=== PATIENT | female | born 1950 | race Caucasian/White ===

== ENCOUNTER 2022-03-12 08:25 | Day surgery (SDC) | payer OTHER ==
[2022-03-11 08:51] VITALS: BMI 23.8
[~2022-03-12 08:25] MED LIST: LACTATED RINGERS 1,000 ML IV SCH
[2022-03-12 08:49] VITALS: RESP 16; TEMP 97.2
[2022-03-12] MEDS ORDERED: LIDOCAINE 2% INJ 20 MG/ML (2 ML VIAL) ONE (09:22)
[2022-03-12] MEDS ORDERED: PROPOFOL 10 MG/ML 20 ML VIAL IV ONE (09:22)
--- NOTE | 2022-03-12 09:23 | P.GSHP ---
History of Present Illness H&P Date: 03/12/22 Chief Complaint: Screening colonoscopy This a 72-year-old female who presents today for screening colonoscopy. Patient denies a significant GI complaints. Past Medical History Past Medical History: Hyperlipidemia, Hypertension History of Any Multi-Drug Resistant Organisms: None Reported Past Surgical History: Cholecystectomy Additional Past Surgical History / Comment(s): COLONOSCOPY Past Anesthesia/Blood Transfusion Reactions: No Reported Reaction Smoking Status: Never smoker - Past Family History Mother Family Medical History: Cancer Medications and Allergies Home Medications Medication Instructions Recorded Confirmed Type Losartan [Cozaar] 50 mg PO DAILY 03/11/22 03/12/22 History Simvastatin 40 mg PO DAILY 03/11/22 03/12/22 History Allergies Allergy/AdvReac Type Severity Reaction Status Date / Time Sulfa (Sulfonamide Allergy Rash/Hives Verified 03/12/22 08:49 Antibiotics) Surgical - Exam Vital Signs Temp Pulse Resp BP Pulse Ox 97.2 F L 100 16 152/77 96 03/12/22 08:41 03/12/22 08:41 03/12/22 08:41 03/12/22 08:41 03/12/22 08:41 - General well developed, well nourished, no distress - Eyes PERRL - ENT normal pinna - Neck no masses - Respiratory normal expansion - Cardiovascular Rhythm: regular - Abdomen Abdomen: soft, non tender Assessment and Plan Assessment: We'll perform screening colonoscopy
--- NOTE | 2022-03-12 09:44 | P.OP ---
Date of Procedure: 03/12/22 Preoperative Diagnosis: Screening colonoscopy Postoperative Diagnosis: Colon polyps Procedure(s) Performed: Colonoscopy Anesthesia: MAC Surgeon: Carter Shah Pathology: other (Transverse colon polyp, left colon polyp) Condition: stable Disposition: PACU Description of Procedure: The patient's placed on the endoscopy table in the lateral position. She received IV sedation. Digital rectal exam was performed. This revealed no abnormalities. The flexible colonoscope was then placed the patient's anus and passed throughout the entire colon. The ileocecal valve was visualized. Cecum, ascending colon appeared normal. In the transverse colon there was a polyp seen was removed with the snare. Scope withdrawn the remainder of the transverse colon appeared normal. In the left colon another polyp seen this removed a combination of snare and forcep. Scope was withdrawn and the remainder of the descending and sigmoid colon appeared normal. Scope was then brought back the rectum and this appeared normal. Scope withdrawn for patient.
[2022-03-12 10:05] VITALS: BP 124/78; PULSE 98
== END 2022-03-12 10:25 | disposition home or self-care (01) ==
LOC: ORWHC2ENDO 08:25
PROVIDERS: ATTEND Surgery
DX: Z12.11 Encounter for screening for malignant neoplasm of colon (principal); D12.3 Benign neoplasm of transverse colon; D12.6 Benign neoplasm of colon, unspecified; I10 Essential (primary) hypertension; E78.5 Hyperlipidemia, unspecified; Z90.49 Acquired absence of other specified parts of digestive tract; Z79.899 Other long term (current) drug therapy; Z88.1 Allergy status to other antibiotic agents
CPT/HCPCS: 88305; 45380; 45385; J2704; J2001